=== PATIENT | male | born 1985 | race Caucasian/White ===

== ENCOUNTER 2022-06-14 06:29 | Emergency (ER) | payer MEDICARE, MEDICAID, SELFPAY ==
[2022-06-14 06:52] VITALS: BP 156/100; PULSE 91; RESP 16; TEMP 36.7; O2SAT 99; BMI 23.6
[2022-06-14 06:54] VITALS: BMI 23.6
--- NOTE | 2022-06-14 06:57 | XR_ITS ---
PROCEDURE INFORMATION: Exam: XR Right Ribs Exam date and time: 06/14/2022 7:05 AM Age: 36 years old Clinical indication: Other: Right anterior rib pain; Additional info: R rib pain TECHNIQUE: Imaging protocol: Radiologic exam of the Right ribs. Views: 2 views. COMPARISON: CR XR CHEST 2V 06/14/2022 7:03 AM FINDINGS: Bones/joints: Remote right lateral 6th rib fracture. Plate and screw fixation in the right humerus. Acute minimally displaced right lateral 10th and 11th rib fractures. Soft tissues: Normal. IMPRESSION: Acute minimally displaced right lateral 10th and 11th rib fractures.
--- NOTE | 2022-06-14 06:57 | XR_ITS ---
PROCEDURE INFORMATION: Exam: XR Chest Exam date and time: 06/14/2022 7:03 AM Age: 36 years old Clinical indication: Pain; Right-sided; Additional info: R ribs pain TECHNIQUE: Imaging protocol: Radiologic exam of the chest. Views: 2 views. COMPARISON: No relevant prior studies available. FINDINGS: Lungs: Unremarkable. No consolidation. Pleural spaces: Unremarkable. No pleural effusion. No pneumothorax. Heart/Mediastinum: Unremarkable. No cardiomegaly. Bones/joints: Acute right rib fractures are seen on concurrent rib series. Remote right 6th rib fracture. Plate and screw fixation in the right humerus. IMPRESSION: Acute right rib fractures are seen on concurrent rib series. Otherwise, no acute cardiopulmonary abnormality.
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
--- NOTE | 2022-06-14 07:30 | PC.NURSE ---
checked on pt at this time, pt states no needs. Visitor at BS. Notified pt we are waiting on his xrays to be read. Pt verbalized understanding.
--- NOTE | 2022-06-14 07:54 | PC.NURSE ---
called to check on reading of xray
--- NOTE | 2022-06-14 08:30 | PC.NURSE ---
called rad again for reading on xray.
--- NOTE | 2022-06-14 08:48 | PC.NURSE ---
rad called at this time, states [facility] is reading pt xrays at this time, notified dr. amador
--- NOTE | 2022-06-14 08:53 | PC.NURSE ---
ford moncada called RT for incentive spirometer
--- NOTE | 2022-06-14 09:01 | PC.NURSE ---
RT at BS for incentive spirometry instructions
[2022-06-14 09:09] VITALS: BP 109/72; PULSE 75; RESP 18; TEMP 36.4; O2SAT 98
== END 2022-06-14 09:09 | disposition home or self-care (01) ==
PROVIDERS: Emergency Provider Emergency Medicine
DX: S22.41XA Multiple fractures of ribs, right side, initial encounter for closed fracture (principal); V49.9XXA Car occupant (driver) (passenger) injured in unspecified traffic accident, initial encounter
CPT/HCPCS: 71046; 71100; 99283

== ENCOUNTER 2022-06-17 09:21 | Emergency (ER) | payer MEDICARE, MEDICAID, SELFPAY ==
[2022-06-17 09:22] VITALS: BP 132/74; PULSE 84; RESP 20; TEMP 36.7; O2SAT 98; BMI 23.6
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
--- NOTE | 2022-06-17 11:02 | PC.NURSE ---
RESPIRATORY NOTIFIED OF PT NEED FOR INCENTIVE SPIROMETER, WILL PROVIDE FOR PT WITH INSTRUCTION
[2022-06-17 11:08] VITALS: BP 128/75; PULSE 80; RESP 18; TEMP 36.7; O2SAT 99
== END 2022-06-17 11:10 | disposition home or self-care (01) ==
PROVIDERS: Emergency Provider Emergency Medicine
DX: S22.41XA Multiple fractures of ribs, right side, initial encounter for closed fracture (principal); G40.909 Epilepsy, unspecified, not intractable, without status epilepticus; F17.200 Nicotine dependence, unspecified, uncomplicated; Z79.899 Other long term (current) drug therapy; Z87.820 Personal history of traumatic brain injury
CPT/HCPCS: 99283

== ENCOUNTER 2023-11-27 17:20 | Emergency (ER) | payer MEDICARE, SELFPAY ==
[2023-11-27 17:40] VITALS: BP 116/74; PULSE 81; RESP 18; TEMP 36.8; O2SAT 96; BMI 27.3
[2023-11-27] MEDS: DEXAMETHASONE 4MG/ML 1ML VIAL 8 MG IM (18:15)
--- NOTE | 2023-11-27 18:18 | EXP.UTC ---
Discharge Plan Disposition Patient Disposition: Home, Self-Care Condition: Good Prescriptions Prescriptions: New triamcinolone acetonide 0.5 % cream 1 applic topical TID Qty: 60 0RF No Action divalproex 500 mg tablet extended release 24 hr See Rx Instructions .ROUTE .COMPLEX Patient Comments: TAKE THREE TABLETS IN THE MORNING AND TAKE THREE TABLETS IN THE EVENING Rx Instructions: TAKE THREE TABLETS IN THE MORNING AND TAKE THREE TABLETS IN THE EVENING escitalopram oxalate 10 mg tablet 10 mg PO DAILY Patient Comments: TAKE ONE TABLET BY MOUTH EVERY DAY AT BEDTIME clobazam 10 mg tablet See Rx Instructions .ROUTE .COMPLEX Patient Comments: TAKE ONE TABLET BY MOUTH TWICE DAILY MAY CAUSE DROWSINESS Rx Instructions: TAKE ONE TABLET BY MOUTH TWICE DAILY MAY CAUSE DROWSINESS Referrals Follow up/Referrals: Provider,Referral, MD [Primary Care Provider] - See instructions Clinical Impressions Clinical Impression: Allergic dermatitis due to poison sigrid Instructions Patient Instructions: DI for Poison Sigrid Allergy, Poisonous Plants: [place], [place], and [place]: Beware the Oils Discharge ED Provider: Bell Reynolds [facility] HPI General Stated complaint: rash Mode of Arrival: Ambulatory Source of Information: Patient Limitations: No Limitations Time Seen by Provider: 11/27/23 17:43 Description of Symptoms (Recalled from Triage Doc. by RN): Pt's symptoms are rash for 2-3 days after cleaning out garden. HEENT Symptoms (Recalled from RN notes): No Resp Symptoms (Recalled from RN notes): No Skin Symptoms (Recalled from RN notes): Yes MS Symptoms (Recalled from RN notes): No Functional Status (Recalled from RN notes): n/a History of Present Illness Provider Complaint: Pt reports that he got into poison sigrid while clearing junk out of his yard. He states that he put Calamine lotion on the sites, but this has not helped. Related Data Home Medications Medication Instructions Recorded Confirmed clobazam 10 mg tablet See Rx Instructions .Route .COMPLEX 11/27/23 11/27/23 divalproex 500 mg tablet,extended See Rx Instructions .Route .COMPLEX 11/27/23 11/27/23 release 24 hr escitalopram oxalate 10 mg tablet 10 mg PO DAILY 11/27/23 11/27/23 Previous Rx's Medication Instructions Recorded triamcinolone acetonide 0.5 % 1 applic topical TID #60 grams 11/27/23 topical cream Allergies Allergy/AdvReac Type Severity Reaction Status Date / Time No Known Allergies Allergy Verified 11/27/23 17:52 Worker's Comp Is this a Worker's Comp case?: No [facility] Disclaimer: The information contained in this section may have been updated after the patient was seen, as this information can be updated by other users. Medical History (Updated 11/27/23 @ 18:24 by Bell Reynolds APRN) Traumatic brain injury Seizure after head injury Humerus fracture Surgical History History of tonsillectomy and adenoidectomy Family History Father Cancer Other Heart attack Hypertension Lupus Stroke Social History Smoking Status: Current every day smoker quit status: not considering quitting alcohol intake: current substance use type: former substance user and marijuana current occupational status: disabled Travel in the last 8 weeks: None adopted: No household members: significant other housing: house lives independently: Yes marital status: single service: No prison: No Hx Recent Travel: No sexually active: Yes ROS Obtained: Yes All systems reviewed & no additional complaints except as documented Constitutional Constitutional: Reports system reviewed and no additional complaints, except as documented Eyes Eyes: Reports system reviewed and no additional complaints, except as documented ENT Ears, Nose, Mouth, and Throat: Reports system reviewed and no additional complaints, except as documented Cardiovascular Cardiovascular: Reports system reviewed and no additional complaints, except as documented Respiratory Respiratory: Reports system reviewed and no additional complaints, except as documented Gastrointestinal Gastrointestingal: Reports system reviewed and no additional complaints, except as documented Genitourinary Male Genitourinary: Reports system reviewed and no additional complaints, except as documented Musculoskeletal Musculoskeletal: Reports system reviewed and no additional complaints, except as documented Integumentary/Breasts Skin/Breast: Reports system reviewed and no additional complaints, except as documented, Reports pruritus and Reports rash Neurologic Neurologic: Reports system reviewed and no additional complaints, except as documented Endocrine Endocrine: Reports system reviewed and no additional complaints, except as documented Hematologic/Lymphatic Henatologic/Lymphatic: Reports system reviewed and no additional complaints, except as documented Allergic/Immunologic Allergic/Immunologic: Reports system reviewed and no additional complaints, except as documented and Reports as per HPI Physical Exam General General appearance: alert and in no apparent distress Head Head exam: atraumatic and normocephalic Eye Eye exam: Present normal appearance ENT ENT exam: Present normal exam Neck Neck exam: Present normal inspection Chest Chest inspection: Present normal inspection and symmetric chest wall rise Respiratory Respiratory exam: Present normal lung sounds bilaterally Cardiovascular Cardiovascular exam: Present regular rate and normal rhythm Abdominal Exam Abdominal exam: Present soft and normal bowel sounds Extremities Exam Extremities exam: Present normal inspection Back Exam Back exam: Present normal inspection Neurological Exam Neurological exam: Present alert and oriented X3 Psychiatric Psychiatric exam: Present normal affect and normal mood Skin Skin exam: Present warm Expanded Skin Exam Type of lesion: Present rash Distribution: generalized Description: Present macular, papular, vesicular and blisters Comment: on face arms and legs. Lymphatic Lymphatic Findings: no adenopathy Medical Decision Making Jaydon Inquiry Pt receiving controlled substance: No Jaydon was queried for this patient: No Vital Signs: 11/27/23 17:40 Temperature 98.2 F Temperature Source Oral Pulse Rate [Right Radial] 81 Respiratory Rate 18 Blood Pressure [Right Arm] 116/74 Blood Pressure Mean [Right Arm] 88 Blood Pressure Source [Right Arm] Automatic Cuff Blood Pressure Position [Right Arm] Sitting 02 Sat by Pulse Oximetry 96 Oxygen Delivery Method Room Air Orders (Tests/Meds): ED MEDICATIONS Generic Name Dose Route Start Last Admin Trade Name Sukumarq PRN Reason Stop Dose Admin Dexamethasone Sodium Phosphate 8 mg 11/27/23 18:02 11/27/23 18:15 Dexamethasone 4mg/Ml 1ml Vial IM 11/27/23 18:03 8 mg ONCE ONE Administration
[2023-11-27 18:41] VITALS: BP 116/75; PULSE 81; RESP 18; TEMP 36.8; O2SAT 96
== END 2023-11-27 18:41 | disposition home or self-care (01) ==
PROVIDERS: Emergency Provider Nurse Practitioner Family; PCP Family Medicine
DX: L23.7 Allergic contact dermatitis due to plants, except food (principal); W60.XXXA Contact with nonvenomous plant thorns and spines and sharp leaves, initial encounter; F17.210 Nicotine dependence, cigarettes, uncomplicated
CPT/HCPCS: 96372; 99204; 99212; G0463

== ENCOUNTER 2024-08-07 09:49 | Emergency (ER) | payer MEDICARE, SELFPAY ==
[2024-08-07] VITALS (9 sets, daily range): BP systolic 99–144; BP diastolic 55–91; PULSE 57–87; RESP 18; TEMP 36.8; O2SAT 95–97; BMI 28.7
--- NOTE | 2024-08-07 09:51 | HMH.EDGENADL ---
Discharge Plan Disposition Patient Disposition: Home, Self-Care Condition: Good Prescriptions Prescriptions: New tamsulosin [Flomax] 0.4 mg capsule 0.4 mg PO HS 20 Days Qty: 20 0RF ketorolac 10 mg tablet 10 mg PO Q8H PRN (Reason: pain) 5 Days Qty: 14 0RF ciprofloxacin HCl 500 mg tablet 500 mg PO BID 10 Days Qty: 20 0RF oxycodone 5 mg tablet 5 mg PO Q8H PRN (Reason: pain) 3 Days Qty: 10 0RF No Action divalproex 500 mg tablet extended release 24 hr See Rx Instructions .ROUTE .COMPLEX Patient Comments: TAKE THREE TABLETS IN THE MORNING AND TAKE THREE TABLETS IN THE EVENING Rx Instructions: TAKE THREE TABLETS IN THE MORNING AND TAKE THREE TABLETS IN THE EVENING escitalopram oxalate 10 mg tablet 10 mg PO DAILY Patient Comments: TAKE ONE TABLET BY MOUTH EVERY DAY AT BEDTIME clobazam 10 mg tablet See Rx Instructions .ROUTE .COMPLEX Patient Comments: TAKE ONE TABLET BY MOUTH TWICE DAILY MAY CAUSE DROWSINESS Rx Instructions: TAKE ONE TABLET BY MOUTH TWICE DAILY MAY CAUSE DROWSINESS triamcinolone acetonide 0.5 % cream 1 applic topical TID Qty: 60 0RF Referrals Follow up/Referrals: Kandy Bradshaw MD [Primary Care Provider] - See instructions Activity Restrictions/Add. Instructions Additional Instructions/Restrictions: As we discussed you have a 2 mm stone that is causing buildup of fluid in your kidney. It is likely to pass on its own. You do have some signs of infection in your urine however given the size of the stone and the location after shared decision making you are stable for discharge at this time. I prescribed antibiotics, pain medication, and medication called Flomax which can help pass the stone. Please return with any new or worsening symptoms. Clinical Impressions Clinical Impression: Calcium urolithiasis Print Language Print Language: Slovak Discharge ED Provider: Arnav Jeffries General Adult HPI General Chief complaint: PAIN Stated complaint: right side/groin pain Time Seen by Provider: 08/07/24 09:51 History of Present Illness HPI narrative: Patient presents for evaluation of left-sided flank pain, acute in onset starting today, constant, stable in course, no previous therapies. Associated symptoms include dysuria. Patient has not had similar symptoms before. No abdominal surgical history. Patient was in his normal state of health prior to onset of symptoms no fevers or chills or nausea or vomiting. Please note that above description of symptoms, in this electronic medical record under categorization of recalled from ER triage doctor by RN are reflective of an initial nursing assessment, however, is not reflective of my full history and physical exam that was personally taken and clarified. Consequentially, this preceding description of symptoms, which may include the patient's categorized chief complaint in the EMR, do not reflect my personal clinical impression, and the ultimate description of history of present illness and patient stated complaints should be deferred to this section of the note. Unless stated otherwise or congruent with this section of the note, additional signs, symptoms, or incongruence should be interpreted as inaccurate with my clinical impression. Related Data Home Medications ?Medication ?Instructions ?Recorded ?Confirmed clobazam 10 mg tablet See Rx Instructions .Route .COMPLEX 11/27/23 11/27/23 divalproex 500 mg tablet,extended See Rx Instructions .Route .COMPLEX 11/27/23 11/27/23 release 24 hr escitalopram oxalate 10 mg tablet 10 mg PO DAILY 11/27/23 11/27/23 Previous Rx's ?Medication ?Instructions ?Recorded triamcinolone acetonide 0.5 % 1 applic topical TID #60 grams 11/27/23 topical cream ciprofloxacin HCl 500 mg tablet 500 mg PO BID 10 days #20 tabs 08/07/24 ketorolac 10 mg tablet 10 mg PO Q8H PRN pain 5 days #14 08/07/24 tabs oxycodone 5 mg tablet 5 mg PO Q8H PRN pain 3 days #10 08/07/24 tabs tamsulosin 0.4 mg capsule (Flomax) 0.4 mg PO HS 20 days #20 caps 08/07/24 Allergies Allergy/AdvReac Type Severity Reaction Status Date / Time No Known Allergies Allergy Verified 11/27/23 17:52 [facility] Disclaimer: The information contained in this section may have been updated after the patient was seen, as this information can be updated by other users. 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 Humerus fracture Surgical History History of tonsillectomy and adenoidectomy Family History Father Cancer Other Heart attack Hypertension Lupus Stroke Social History Smoking Status: Current every day smoker quit status: not considering quitting alcohol intake: current alcohol intake frequency: holidays/special occasions only substance use type: former substance user and marijuana current occupational status: disabled Travel in the last 8 weeks: None adopted: No household members: significant other housing: house lives independently: Yes marital status: single service: No long-term: No Hx Recent Travel: No sexually active: Yes Have you lived/traveled outside [place] in past 30 days?: No Contact w/someone who lives/traveled outside [place] past 30 days?: No Exposure to someone with infectious disease in past 14 days?: No Do you have a fever (greater than 100.4 F or 38 C)?: No Have you tested positive for COVID-19: No Exposed to someone with COVID-19 in past 14 days?: No Do you have a sore throat?: No Do you have a cough?: No Do you have any weakness?: No Do you have any diarrhea?: No Are you experiencing any unusual bleeding?: No Do you have any muscle aches/pain?: No Do you have any abdominal pain?: Yes Are you experiencing loss of taste or smell?: No Other Medical History Have you received the Pneumonia Vaccine: No ROS Obtained: Yes other As per HPI Physical Exam General General appearance: alert and in no apparent distress Head Head exam: atraumatic and normocephalic Eye Eye exam: Present normal appearance Neck Neck exam: Present normal inspection Chest Chest inspection: Present normal inspection and symmetric chest wall rise Respiratory Respiratory exam: Present normal lung sounds bilaterally; Absent respiratory distress Cardiovascular Cardiovascular exam: Present regular rate and normal rhythm Abdominal Exam Abdominal exam: Present soft Neurological Exam Neurological exam: Present alert and oriented X3 Psychiatric Psychiatric exam: Present normal affect and normal mood Skin Skin exam: Present warm and dry Medical Decision Making Medical Records Medical records reviewed: Yes I reviewed the patient's medical records. Screening: Per USPSTF and CDC recommendations, given the prevalence of disease in our region, it is our hospital?s policy to screen for HIV and viral Hepatitis for all patients aged 18 and over and those with ongoing risk factors. [place] Inquiry Pt receiving controlled substance: No Vital Signs: 08/07/24 10:03 08/07/24 10:34 08/07/24 11:00 Temperature 98.2 F Temperature Source Oral Pulse Rate 82 59 L Pulse Rate [Right Radial] 61 Respiratory Rate 18 Blood Pressure 120/70 117/72 Blood Pressure [Right Arm] 144/87 H Blood Pressure Mean [Right Arm] 106 02 Sat by Pulse Oximetry 95 95 96 Oxygen Delivery Method Room Air Room Air Room Air 08/07/24 11:30 08/07/24 12:00 08/07/24 12:30 Temperature Temperature Source Pulse Rate 58 L 61 58 L Pulse Rate [Right Radial] Respiratory Rate Blood Pressure 118/73 99/55 L 114/77 Blood Pressure [Right Arm] Blood Pressure Mean [Right Arm] 02 Sat by Pulse Oximetry 96 95 97 Oxygen Delivery Method Room Air Room Air Room Air 08/07/24 13:01 08/07/24 13:31 08/07/24 14:25 Temperature 98.2 F Temperature Source Pulse Rate 57 L 77 87 Pulse Rate [Right Radial] Respiratory Rate 18 Blood Pressure 122/91 H 106/66 L 144/87 H Blood Pressure [Right Arm] Blood Pressure Mean [Right Arm] 02 Sat by Pulse Oximetry 97 96 Oxygen Delivery Method Room Air Room Air Lab Data Lab Results 08/07/24 09:54: Urine Color Yellow, Urine Appearance Clear, Urine pH 5.5, Ur Specific [place] >= 1.030, Urine Protein Trace, Urine Glucose (UA) Negative, Urine Ketones 1+, Urine Blood 2+ A, Urine Nitrate Negative, Urine Bilirubin Negative, Urine Urobilinogen 0.2, Ur Leukocyte Esterase Negative, Urine RBC None, Urine WBC Occasional, Ur Squamous Epith Cells Occasional, Urine Bacteria Trace 08/07/24 10:23: WBC 15.7 H, RBC 4.07 L, Hgb 14.4, Hct 42.4, MCV 104.2 H, MCH 35.4 H, MCHC 33.9, RDW 14.7, Plt Count 210, MPV 8.7, Neut % (Auto) 80.5 H, Lymph % (Auto) 12.0, [place] % (Auto) 4.7, Eos % (Auto) 2.2, Baso % (Auto) 0.5, Neut # (Auto) 12.6 H, Lymph # (Auto) 1.9, [place] # (Auto) 0.7, Eos # (Auto) 0.4, Baso # (Auto) 0.1, Total Counted 100, Neutrophils % (Manual) 77 H, Lymphocytes % (Manual) 15, Monocytes % (Manual) 3, Eosinophils % (Manual) 5 H, Platelet Estimate Normal, RBC Morphology Normal, Sodium 136, Potassium 3.8, Chloride 106, Carbon Dioxide 25, Anion Gap 8.8, BUN 24 H, Creatinine 1.20, Estimated Creat Clear 105, Estimated GFR 67, Est GFR ( Amer) 81, Glucose 144 H, Calcium 9.2, Total Bilirubin 0.4, AST 40, ALT 35, Alkaline Phosphatase 53, Total Protein 7.3, Albumin 4.6, Globulin 2.7, Albumin/Globulin Ratio 1.7, Lipase 45, Hepatitis C Antibody Non reactive, HIV 1&2 Antibody Rapid Nonreactive 08/07/24 10:23 08/07/24 10:23 Orders (Tests/Meds): ED MEDICATIONS Discontinued Medications Generic Name Dose Route Start Last Admin Trade Name Freq PRN Reason Stop Dose Admin Ketorolac Tromethamine 15 mg 08/07/24 10:26 08/07/24 11:00 Ketorolac 30mg/Ml Vial IV 08/07/24 10:27 15 mg ONCE ONE Administration Morphine Sulfate 4 mg 08/07/24 10:26 08/07/24 11:00 Morphine 4mg/Ml Syringe IV 08/07/24 10:27 4 mg ONCE ONE Administration Morphine Sulfate 4 mg 08/07/24 13:07 08/07/24 13:18 Morphine 4mg/Ml Syringe IV 08/07/24 13:08 4 mg ONCE ONE Administration Ondansetron HCl 4 mg 08/07/24 11:01 08/07/24 11:01 Ondansetron 4mg/2ml Vial IV 08/07/24 11:02 4 mg ONCE ONE Administration Ondansetron HCl 4 mg 08/07/24 13:18 08/07/24 13:19 Ondansetron 4mg/2ml Vial IV 08/07/24 13:19 4 mg ONCE ONE Administration Tamsulosin HCl 0.4 mg 08/07/24 13:19 08/07/24 13:19 Tamsulosin 0.4mg Capsule PO 08/07/24 13:20 0.4 mg ONCE ONE Administration ORDERS Category Date Time Status CT abdomen pelvis wo con Stat Cat Scan 08/07/24 10:41 Completed CBC w/Auto Diff [Complete Blood Count Auto Diff] Stat Lab 08/07/24 10:23 Completed CMP [Comprehensive Metabolic Panel] Stat Lab 08/07/24 10:23 Completed HIV (1&2) Antibody Rapid Stat Lab 08/07/24 10:23 Completed Hep C Ab with Reflex to RNA Stat Lab 08/07/24 10:23 Completed Lipase Stat Lab 08/07/24 10:23 Completed Urinalysis and Microscopic Stat Lab 08/07/24 09:54 Completed Urine Culture Stat Micro 08/07/24 09:54 Completed Medical Decision Narrative: Patient with history and exam per above presenting for evaluation of left-sided flank pain Diagnoses considered include urolithiasis, pyelonephritis, among others ED workup and treatment included: ED MEDICATIONS Discontinued Medications Generic Name Dose Route Start Last Admin Trade Name Freq PRN Reason Stop Dose Admin Ketorolac Tromethamine 15 mg 08/07/24 10:26 08/07/24 11:00 Ketorolac 30mg/Ml Vial IV 08/07/24 10:27 15 mg ONCE ONE Administration Morphine Sulfate 4 mg 08/07/24 10:26 08/07/24 11:00 Morphine 4mg/Ml Syringe IV 08/07/24 10:27 4 mg ONCE ONE Administration Morphine Sulfate 4 mg 08/07/24 13:07 08/07/24 13:18 Morphine 4mg/Ml Syringe IV 08/07/24 13:08 4 mg ONCE ONE Administration Ondansetron HCl 4 mg 08/07/24 11:01 08/07/24 11:01 Ondansetron 4mg/2ml Vial IV 08/07/24 11:02 4 mg ONCE ONE Administration Ondansetron HCl 4 mg 08/07/24 13:18 08/07/24 13:19 Ondansetron 4mg/2ml Vial IV 08/07/24 13:19 4 mg ONCE ONE Administration Tamsulosin HCl 0.4 mg 08/07/24 13:19 08/07/24 13:19 Tamsulosin 0.4mg Capsule PO 08/07/24 13:20 0.4 mg ONCE ONE Administration ORDERS Category Date Time Status CT abdomen pelvis wo con Stat Cat Scan 08/07/24 10:41 Completed CBC w/Auto Diff [Complete Blood Count Auto Diff] Stat Lab 08/07/24 10:23 Completed CMP [Comprehensive Metabolic Panel] Stat Lab 08/07/24 10:23 Completed HIV (1&2) Antibody Rapid Stat Lab 08/07/24 10:23 Completed Hep C Ab with Reflex to RNA Stat Lab 08/07/24 10:23 Completed Lipase Stat Lab 08/07/24 10:23 Completed Urinalysis and Microscopic Stat Lab 08/07/24 09:54 Completed Urine Culture Stat Micro 08/07/24 09:54 Completed Labs were independently interpreted by me, significant for leukocytosis, urinalysis with hematuria, trace bacteriuria Imaging was independently visualized and interpreted by me, significant for 2 mm distal stone with associated hydronephrosis Please refer to radiology report for full details. My clinical impression at this time is most consistent with urolithiasis. After shared decision making we will elect to treat with antibiotics and outpatient follow-up with strict return precautions. The patient was advised that persistent or worsening symptoms require further evaluation. Critical Care Critical Care Time Critical Care Time: No
[2024-08-07 10:36] LABS: Microscopic, Urine URINE MICROSCOPIC (MICROSCOPIC)
[2024-08-07 10:38] LABS: Basophils # 0.1 K/mm3 (0-0.2); Basophils % 0.5 % (0.1-2.0); Eosinophils # 0.4 K/mm3 (0.0-0.4); Eosinophils % 2.2 % (0.1-12.0); Hematocrit 42.4 % (42.0-52.0); Hemoglobin 14.4 g/dL (14.1-18.0); Lymphocytes # 1.9 K/mm3 (0.7-4.5); Mean Corpuscular HGB Conc 33.9 g/dL (31.8-35.4); Mean Corpuscular Hemoglobin 35.4 pg (27.0-31.2); Mean Corpuscular Volume 104.2 fl (80-94); Mean Platelet Volume 8.7 fl (7.4-10.4); Monocytes # 0.7 K/mm3 (0.1-1.0); Monocytes % 4.7 % (1.7-9.3); Neutrophils # 12.6 K/mm3 (1.8-7.8); Neutrophils % 80.5 % (37.0-80.0); Platelet Count 210 K/mm3 (142-424); Red Blood Count 4.07 M/mm3 (4.60-6.20); Red Cell Distribution Width 14.7 % (11.5-17.5); White Blood Count 15.7 K/mm3 (4.8-10.8)
[2024-08-07 10:39] LABS: Appearance,Urine CLEAR (Clear); Bilirubin,Urine Negative (Negative); Blood, Urine 2+ (Negative); Color,Urine YELLOW (Yellow); Glucose,Urine (UA) Negative (Negative); Ketones,Urine 1+ (Negative); Leukocyte Esterase,Urine Negative (Negative); Nitrate,Urine Negative (Negative); PH,Urine 5.5 (5.0-8.5); Protein,Urine TRACE (Negative); Specific Gravity, Urine >= 1.030 (1.005-1.030); Urobilinogen,Urine 0.2 EU/dl (0.2)
--- NOTE | 2024-08-07 10:41 | CT_ITS ---
FINAL REPORT TECHNIQUE: Axial images through the abdomen and pelvis were performed without contrast. This study was performed with techniques to keep radiation doses as low as reasonably achievable, (ALARA). Individualized dose reduction techniques using automated exposure control or adjustment of mA and/or kV according to the patient's size were employed. CLINICAL HISTORY: flank pain, hematuria, stone suspected FINDINGS: ABDOMEN: There is mild bibasilar atelectasis. The heart size is normal. Limited images of the liver are unremarkable. The spleen is normal. No adrenal mass is identified. The aorta is normal in caliber. There is no significant free fluid or adenopathy. There are several less than 3 mm nonobstructing renal stones. There is mild right hydronephrosis and hydroureter secondary to a 2 mm right UVJ stone. PELVIS: The appendix is not identified. There mild bladder wall thickening, likely inflammatory. There is a small umbilical hernia containing fat. There is no significant free fluid or adenopathy. IMPRESSION: Bilateral nephrolithiasis. Right hydronephrosis and hydroureter secondary to a UVJ stone. Bladder wall thickening, likely inflammatory. Reviewed, Interpreted and Dictated by Raleigh Joseph III, MD Transcribed by Tasha Cox Authenticated and [facility]
[2024-08-07 10:45] LABS: Albumin Level 4.6 g/dl (3.5-5.0); Chloride 106 mmol/L (98-107); Potassium 3.8 mmoL/L (3.5-5.1); Sodium 136 mmol/L (136-145)
[2024-08-07 10:48] LABS: Alanine Aminotransferase 35 U/L (12-78); Albumin/Globulin Ratio 1.7 (1.1-1.8); Alkaline Phosphatase 53 U/L (38-126); Anion Gap 8.8 mEq/L (5-15); Aspartate Amino Transferase 40 U/L (17-59); Bilirubin,Total 0.4 mg/dl (0.2-1.3); Blood Urea Nitrogen 24 mg/dl (9-20); Calcium 9.2 mg/dl (8.4-10.2); Carbon Dioxide 25 mmol/L (22.0-30.0); Creatinine Clearance Estimated 105 mL/min (50-200); Estimated Glomerular Filt Rate 67 ml/min (>60); GFR (African American) 81 ML/MIN (>60); Globulin 2.7 g/dL (1.3-3.2); Glucose 144 mg/dl (74-100); Lipase 45 U/L (23-300); Total Protein,Serum 7.3 g/dl (6.3-8.2)
[2024-08-07 10:49] LABS: MANUAL DIFFERENTIAL MANUAL DIFFERENTIAL (MANUAL DIFF)
--- NOTE | 2024-08-07 10:50 | PC.NURSE ---
pt called out stating he was very uncomfortable i relayed message to haresh(leobardo) taking care of him
[2024-08-07 11:00] LABS: Bacteria,Urine Trace /lpf; Squamous Epithelial Cell,Urine Occasional #/hpf (0-5); WBC,Urine Occasional #/hpf (0-3)
[2024-08-07] MEDS: KETOROLAC 30MG/ML VIAL 15 MG IV (11:00)
[2024-08-07] MEDS: MORPHINE 4MG/ML SYRINGE 4 MG IV ×2 (11:00→13:18)
[2024-08-07] MEDS: ONDANSETRON 4MG/2ML VIAL 4 MG IV ×2 (11:01→13:19)
--- NOTE | 2024-08-07 11:30 | PC.NURSE ---
Called radiology to check on status of CT scan, Judit states its locked on so it should be read soon . Dr Jeffries updated on this
[2024-08-07 11:50] LABS: Eosinophils % 5 % (0-3); Lymphocytes % 15 % (10-50); Monocytes % 3 % (2-9); Neutrophils % 77 % (42-76); Platelet Estimate Normal; RBC Morphology Normal; Total Cells Counted 100
--- NOTE | 2024-08-07 12:52 | PC.NURSE ---
Called radiology to check status of ct read. They will call back.
--- NOTE | 2024-08-07 13:05 | PC.NURSE ---
Dr. Jeffries at bedside
[2024-08-07] MEDS: TAMSULOSIN 0.4MG CAPSULE 0.4 MG PO (13:19)
[2024-08-07 14:32] LABS: HIV (1&2) Antibody Rapid NONREACTIVE (NONREACTIVE)
[2024-08-08 06:11] LABS: HCV Ab Non Reactive (Non Reactive)
== END 2024-08-07 14:26 | disposition home or self-care (01) ==
PROVIDERS: Emergency Provider Emergency Medicine; PCP Family Medicine
DX: N20.9 Urinary calculus, unspecified (principal); R10.31 Right lower quadrant pain
CPT/HCPCS: 74176; 80053; 81001; 83690; 85007; 85025; 85027; 86803; 87086; 87389; 96374; 96375; 99284; J1885; J2270; J2405